=== PATIENT | female | born 1955 | race Caucasian/White ===

== ENCOUNTER → 2024-10-18 11:18 | Outpatient (REF) | payer SELFPAY | LOC: RAD 11:18 | PROVIDERS: ATTENDING PHYSICIAN Family Medicine | DX: M54.50 Low back pain, unspecified (principal); W06.XXXA Fall from bed, initial encounter; M25.551 Pain in right hip; M25.552 Pain in left hip; M25.562 Pain in left knee; M25.561 Pain in right knee; M54.9 Dorsalgia, unspecified | CPT/HCPCS: 72110; 73522; 73564 ==

== ENCOUNTER 2024-10-21 07:55 | Emergency (ER) | payer MEDICARE, SELFPAY ==
[2024-10-21 07:57] VITALS: BP 163/84
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
[2024-10-21] MEDS: MOTRIN 600 MG PO (08:20)
[2024-10-21 12:46] VITALS: BP 149/79
== END 2024-10-21 12:15 | disposition home or self-care (01) ==
LOC: EMR 07:55
PROVIDERS: EMERGENCY PHYSICIAN Emergency Medicine; FAMILY PHYSICIAN Family Medicine
DX: M25.551 Pain in right hip (principal); M79.604 Pain in right leg; M54.9 Dorsalgia, unspecified; W06.XXXA Fall from bed, initial encounter; M16.11 Unilateral primary osteoarthritis, right hip; I10 Essential (primary) hypertension; I34.1 Nonrheumatic mitral (valve) prolapse; Z91.128 Patient's intentional underdosing of medication regimen for other reason; K31.84 Gastroparesis; Z90.49 Acquired absence of other specified parts of digestive tract; Z88.1 Allergy status to other antibiotic agents; Z88.3 Allergy status to other anti-infective agents; Z91.012 Allergy to eggs; Z88.0 Allergy status to penicillin; Z88.8 Allergy status to other drugs, medicaments and biological substances; Z91.018 Allergy to other foods
CPT/HCPCS: 99283; 72050; 72072

== ENCOUNTER → 2024-11-30 13:47 | Outpatient (REF) | payer MEDICARE, SELFPAY | LOC: PAVMRI 13:47 | PROVIDERS: ATTENDING PHYSICIAN Pain Medicine Interventional Pain Medicine | DX: M54.16 Radiculopathy, lumbar region (principal) | CPT/HCPCS: 72148 ==